=== PATIENT | male | born 1995 | race Caucasian/White ===

== ENCOUNTER 2022-12-06 20:28 | Emergency (ER) | payer OTHER ==
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
[2022-12-06] MEDS ORDERED: PROPARACAINE 0.5% OPHTH DROPS 15 ML LEFTEYE STA (20:52)
[2022-12-06] MEDS ORDERED: POLYMYXIN B/TRIMETH OPHTH DROPS LEFTEYE STA (21:12)
[2022-12-06] MEDS ORDERED: BACITRACIN ZINC OINT 1 PACKET TOP STA (21:13)
--- NOTE | 2022-12-06 21:44 | CT Report ---
PROCEDURE: HEAD WO INDICATIONS: head injury with LOC TECHNIQUE: Noncontrast 4.5 mm thick angled axial sections acquired from the foramen magnum to the vertex. For r adiation dose reduction, the following was used: automated exposure control, adjustment of mA and/or kV according to patient size. COMPARISON: None. FINDINGS: Image quality: Excellent. CSF spaces: Basal cisterns are patent. No extra-axial fluid collections. Ventricles are normal in size and shape. Brain: No intracranial hemorrhage, mass, or mass effect. Salgado-white matter interface appears preser june. Skull and face: Calvarium and visualized facial bones are intact, without suspicious lesions. Sinuses: Visualized sinuses and mastoids are clear. IMPRESSION: 1. No acute intracranial abnormality. Reviewed by: Angel Oropeza MD on 12/06/2022 9:43 PM PDT Approved by: Angel Oropeza MD on 12/06/2022 9:43 PM PDT Station ID: [id number]
[2022-12-06 22:14] VITALS: BP 136/76
== END 2022-12-06 22:13 | disposition home or self-care (01) ==
LOC: ED 20:28
DX: S01.21XA Laceration without foreign body of nose, initial encounter (principal); S05.02XA Injury of conjunctiva and corneal abrasion without foreign body, left eye, initial encounter; H74.8X2 Other specified disorders of left middle ear and mastoid; W39.XXXA Discharge of firework, initial encounter; Y93.89 Activity, other specified
CPT/HCPCS: 70450; 99283; 99284; A9270; J3490